=== PATIENT | female | born 1995 | race Asian ===

== ENCOUNTER → 2023-03-09 11:11 | Outpatient (REF) | payer OTHER, SELFPAY | LOC: PNTC 11:11 | PROVIDERS: ATTENDING PHYSICIAN Obstetrics & Gynecology | DX: O24.419 Gestational diabetes mellitus in pregnancy, unspecified control (principal) | CPT/HCPCS: 59025; 76815 ==

== ENCOUNTER → 2023-03-15 11:21 | Outpatient (REF) | payer OTHER, SELFPAY | LOC: PNTC 11:21 | PROVIDERS: ATTENDING PHYSICIAN Obstetrics & Gynecology | DX: O24.419 Gestational diabetes mellitus in pregnancy, unspecified control (principal) | CPT/HCPCS: 59025; 76815 ==

== ENCOUNTER 2023-03-16 10:57 | Inpatient (IN) | payer OTHER, SELFPAY ==
[2023-03-16 11:12] VITALS: BP 122/66; BMI 32.4
[2023-03-16] MEDS: LR 1000 IV (11:15)
[2023-03-16 12:05] LABS: % Basophils 0.3 % (0-2); % Eosinophils 0.9 % (0-6); % Immature Granulocytes 1.4 % (0-0.5); % Lymphocytes 21.4 % (20.5-51.1); % Monocytes 9.4 % (1.7-9.3); % Neutrophils 66.6 % (42.2-75.2); Absolute Eosinophils 0.1 10^3/uL (0-0.7); Absolute Immature Granulocytes 0.1 10^3/uL (0-0.05); Absolute Monocytes 0.9 10^3/uL (0.1-0.6); Absolute Neutrophils 6.1 10^3/uL (1.4-6.5); Hematocrit 37.8 % (37.0-47.0); Hemoglobin 13.4 g/dL (12.0-16.0); Mean Corp Hgb Conc. 35.4 g/dL (33.0-37.0); Mean Corpuscular Hgb 29.4 pg (27.0-31.0); Mean Corpuscular Volume 82.9 fL (81.0-99.0); Mean Platelet Volume 12.3 fL (7.4-10.4); Nucleated Red Blood Cells % 0 %; Platelet Count 164 10^3/uL (130-400); Red Blood Cell Count 4.56 10^6/uL (4.20-5.40); Red Cell Dist. Width 13.6 % (11.5-14.5); White Blood Cell Count 9.2 10^3/uL (4.8-10.8)
[2023-03-16 12:40] LABS: ALT (SGPT) 13 U/L (0-35); AST (SGOT) 30 U/L (14-36); Albumin 3.1 g/dl (3.5-5.0); Alkaline Phosphatase 297 U/L (38-126); Blood Urea Nitrogen 14 mg/dl (7-17); Calcium 9.5 mg/dl (8.4-10.2); Carbon Dioxide 17 mmol/L (22-30); Chloride 110 mmol/L (98-107); Estimated Creatinine Clearance 124 ml/min; Glucose 95 mg/dl (70-99); Potassium 4.2 mmol/L (3.5-5.1); Sodium 131 mmol/L (135-145); Total Bilirubin 0.7 mg/dl (0.2-1.3); Total Protein 5.6 g/dl (6.3-8.2); eGFR > 60.00
[2023-03-16 13:05] LABS: Glucose - Point of Care 91 mg/dl (70-99)
[2023-03-16 13:06] LABS: Amphetamines Negative (Negative); Barbiturates Negative (Negative); Benzodiazepines Negative (Negative); Buprenorphine Negative (Negative); Cocaine Negative (Negative); Marijuana Negative (Negative); Methadone Negative (Negative); Methamphetamines Negative (Negative); Opiates Negative (Negative); Phencyclidine Negative (Negative); Tricyclic Antidepressants Negative (Negative)
[2023-03-16] MEDS: PITOCIN 30 UNITS/NSS 500 ML IV (13:32)
[2023-03-16] MEDS: NOVOLIN R INSULIN INFUSION 100 IV (13:33)
[2023-03-16] MEDS: D5W 1000 IV ×2 (13:34→22:55)
[2023-03-16 14:03] LABS: Glucose - Point of Care 91 mg/dl (70-99)
[2023-03-16 15:04] LABS: Glucose - Point of Care 65 mg/dl (70-99)
[2023-03-16 16:11] LABS: Glucose - Point of Care 122 mg/dl (70-99)
[2023-03-16 17:08] LABS: Glucose - Point of Care 113 mg/dl (70-99)
[2023-03-16 18:05] LABS: Glucose - Point of Care 116 mg/dl (70-99)
[2023-03-16 19:08] LABS: Glucose - Point of Care 105 mg/dl (70-99)
[2023-03-16 20:00] LABS: Glucose - Point of Care 99 mg/dl (70-99)
[2023-03-16 21:02] LABS: Glucose - Point of Care 95 mg/dl (70-99)
[2023-03-16 22:03] LABS: Glucose - Point of Care 73 mg/dl (70-99)
[2023-03-16 22:59] LABS: Glucose - Point of Care 77 mg/dl (70-99)
[2023-03-17 00:07] LABS: Glucose - Point of Care 78 mg/dl (70-99)
[2023-03-17 00:58] LABS: Glucose - Point of Care 84 mg/dl (70-99)
[2023-03-17 02:03] LABS: Glucose - Point of Care 108 mg/dl (70-99)
[2023-03-17 02:59] LABS: Glucose - Point of Care 67 mg/dl (70-99)
[2023-03-17 03:17] LABS: Glucose - Point of Care 86 mg/dl (70-99)
[2023-03-17 04:00] LABS: Glucose - Point of Care 94 mg/dl (70-99)
[2023-03-17] MEDS: SUBLIMAZE 100 MCG EPIDURAL (04:05)
[2023-03-17] MEDS: FENTANYL/BUPIVACAINE 100 EPIDURAL (04:05)
[2023-03-17 05:02] LABS: Glucose - Point of Care 78 mg/dl (70-99)
[2023-03-17 05:53] LABS: Glucose - Point of Care 73 mg/dl (70-99)
[2023-03-17 07:08] LABS: Glucose - Point of Care 84 mg/dl (70-99)
[2023-03-17] MEDS: ANCEF 10 IV (07:27)
[2023-03-17] MEDS: BICITRA 30 ML PO (07:27)
[2023-03-17] MEDS: TYLENOL 1000 MG PO (07:27)
[2023-03-17] MEDS: TORADOL 15 MG IV ×3 (09:20→21:15)
[2023-03-18] MEDS: TORADOL 15 MG IV ×2 (03:22→09:11)
[2023-03-18 05:35] LABS: Hematocrit 29.9 % (37.0-47.0); Hemoglobin 10.8 g/dL (12.0-16.0); Mean Corp Hgb Conc. 36.1 g/dL (33.0-37.0); Mean Corpuscular Hgb 29.8 pg (27.0-31.0); Mean Corpuscular Volume 82.4 fL (81.0-99.0); Mean Platelet Volume 11.1 fL (7.4-10.4); Platelet Count 133 10^3/uL (130-400); Red Blood Cell Count 3.63 10^6/uL (4.20-5.40); Red Cell Dist. Width 13.4 % (11.5-14.5); White Blood Cell Count 15.2 10^3/uL (4.8-10.8)
--- NOTE | 2023-03-18 07:32 | W.PN.ANS.POP ---
Anesthesia Post Operative
- Anesthesia Post Op Note
Vital Signs Stable-See Nursing Note: Yes
Airway Patent: Yes
Adequate Pain Control: Yes
Change in Mental Status: No
Current Postoperative Nausea & Vomiting: No
Anesthesia Complications: No
General Anesthetic Recall: No
Unplanned Admission: No
Post Op Hydration Adequate: Yes
- -
Pt awake and alert-resting comfortably with no anesthesia related c/o at time of post op visit.
[2023-03-18] MEDS: FEOSOL 325 MG PO (08:18)
[2023-03-18] MEDS: PRENATAL PLUS 1 TABLET PO (08:18)
[2023-03-18] MEDS: MYLICON 80 MG PO ×2 (08:19→17:23)
[2023-03-18] MEDS: SENOKOT-S 1 TABLET PO (08:19)
[2023-03-18] MEDS: MOTRIN 600 MG PO ×2 (17:23→23:18)
[2023-03-18] MEDS: TYLENOL 650 MG PO (19:43)
[2023-03-19] MEDS: TYLENOL 650 MG PO ×4 (04:39→23:59)
[2023-03-19] MEDS: MOTRIN 600 MG PO ×3 (04:39→17:45)
[2023-03-19] MEDS: FEOSOL 325 MG PO (08:05)
[2023-03-19] MEDS: SENOKOT-S 1 TABLET PO (08:06)
[2023-03-19] MEDS: PRENATAL PLUS 1 TABLET PO (08:06)
[2023-03-20] MEDS: MOTRIN 600 MG PO ×3 (06:06→14:42)
[2023-03-20] MEDS: TYLENOL 650 MG PO ×2 (06:06→14:42)
[2023-03-20] MEDS: SENOKOT-S 1 TABLET PO (10:11)
[2023-03-20] MEDS: PRENATAL PLUS 1 TABLET PO (10:11)
[2023-03-20] MEDS: FEOSOL 325 MG PO (10:11)
--- NOTE | 2023-03-20 10:23 | W.DS.TRANS ---
DC Summary - [employer]
-
Discharge Instructions:
Discharge Diagnosis/Procedures section
Instructions:
Stand-Alone Forms: LDRP Delivery
Changes to Home Medications: No
Discharge Medications:
DC Medications w/original date entered in [facility]
iron 65 mg PO DAILY 03/16/23
[id number] 1 mg tablet 1 tab PO DAILY 03/16/23
acetaminophen 325 mg tablet 650 mg PO Q4HPRN PRN mild pain #0 tabs 03/20/23
ibuprofen 600 mg tablet 600 mg PO Q6HPRN PRN cramps #40 tabs 03/20/23
sennosides 8.6 mg-docusate sodium 50 mg tablet (Stool Softener-Stimulant Laxative) 1 tab PO DAILYPRN PRN constipation #0 tabs 03/20/23
simethicone 80 mg chewable tablet 80 mg PO TIDPRN PRN flatulence #0 tabs 03/20/23
Home Medication Changes
Pending Results: No
Total time spent discharging patient (in min): 20
[2023-03-20] MEDS: MYLICON 80 MG PO (17:10)
[2023-03-23 13:41] LABS: Syphilis/T. pallidum Ab Reflex Negative (Negative)
== END 2023-03-20 17:49 | disposition home or self-care (01) | DRG 788 ==
LOC: LDRP 10:57
PROVIDERS: Obstetrics & Gynecology; ADMITTING PHYSICIAN Obstetrics & Gynecology; CONSULT PHYSICIAN Anesthesiology; CONSULT PHYSICIAN Nurse Anesthetist, Certified Registered; CONSULT PHYSICIAN Registered Nurse; CONSULT PHYSICIAN Specialist; CONSULT PHYSICIAN Student in an Organized Health Care Education/Training Program; FAMILY PHYSICIAN Family Medicine
PROC: 3E033VJ Introduction of Other Hormone into Peripheral Vein, Percutaneous Approach (ICD-10-PCS; 2023-03-16)
PROC: 10D00Z1 Extraction of Products of Conception, Low, Open Approach (ICD-10-PCS; 2023-03-17)
DX: O61.9 Failed induction of labor, unspecified (principal); O24.429 Gestational diabetes mellitus in childbirth, unspecified control; Z3A.40 40 weeks gestation of pregnancy; F90.9 Attention-deficit hyperactivity disorder, unspecified type; F32.A Depression, unspecified; F41.9 Anxiety disorder, unspecified; O99.344 Other mental disorders complicating childbirth; Z37.0 Single live birth; O48.0 Post-term pregnancy
CPT/HCPCS: 88307; 80053; 80306; 82962; 85025; 85027; 86780; 86850; 86900; 86901